=== PATIENT | female | born 1985 | race Two or more races ===

== ENCOUNTER 2021-11-09 10:25 | Inpatient (IN) | payer MEDICAID ==
[~2021-11-09] VITALS: Ht 157.5 cm; Wt 88.7 kg
[~2021-11-09 10:25] MED LIST: IBUP200C14
[2021-11-09 11:19] LABS: Basophils # (auto) 0.1 10 ^3/uL (0-0.2); Basophils % (auto) 1.1 % (0.0-2.0); Eosinophils # (auto) 0.1 10 ^3/uL (0-0.8); Eosinophils % (auto) 0.7 % (0.0-7.0); Hematocrit 39.4 % (36.0-46.0); Hemoglobin 12.9 g/dL (12.2-16.2); Lymphocytes # (auto) 2.3 10 ^3/uL (0.4-5.4); Mean Corpuscular Hemoglobin 25.7 pg (28.0-32.0); Mean Corpuscular Hgb Conc. 32.7 g/dL (32.0-36.0); Mean Corpuscular Volume 78.6 fL (80.0-100.0); Monocytes # (auto) 0.8 10 ^3/uL (0-1.3); Monocytes % (auto) 6.9 % (0.0-12.0); Neutrophils # (auto) 8.7 10 ^3/uL (1.6-8.6); Neutrophils % (auto) 72.3 % (37.0-80.0); Red Blood Cells 5.01 10^6/uL (4.0-5.20); Red Cell Distribution Width 15.7 % (11.8-14.3)
[2021-11-09 12:00] LABS: Albumin 3.6 g/dL (3.4-5.0); Potassium 3.3 mmol/L (3.5-5.1)
[2021-11-09 12:04] LABS: BUN/Creatinine Ratio 17.5; Total Protein 8.2 g/dL (6.4-8.2)
[2021-11-09 14:29] LABS: Urine Bacteria MANY /hpf (None Seen); Urine Blood TRACE /uL (Negative); Urine Mucus FEW (None Seen); Urine Specific Gravity 1.024 (1.001-1.035); Urine WBC 185 /hpf (0 - 5)
[2021-11-09] MEDS ORDERED: ONDANSETRON HCL 4 MG/2 ML VIAL IV PRN (15:30)
[2021-11-09] MEDS ORDERED: cefTRIAXone 1GM/50ML D5W 50 ML IV ONE (15:30)
[2021-11-09] MEDS ORDERED: MORPHINE SULFATE INJECTION 2 MG/ML SYRG IV PRN (15:30)
[2021-11-09] MEDS: SODIUM CHLORIDE 0.9% 1,000 ML IV SCH (15:30)
[2021-11-09] MEDS ORDERED: SODIUM CHLORIDE 0.9% 1,000 ML IV ONE (15:45)
[2021-11-09 19:50] VITALS: BP 119/74
[2021-11-09 20:00] VITALS: BP 125/66
[2021-11-09 20:18] LABS: INR 1.07 (0.9-1.15)
[2021-11-09 22:39] VITALS: BP 119/74
[2021-11-09 22:46] VITALS: BP 119/74
[2021-11-09] MEDS: metroNIDAZOLE 500MG/100ML 100 ML IV SCH (22:49)
[2021-11-10] MEDS ORDERED: ESCI10TA PO (00:49)
[2021-11-10] MEDS: SODIUM CHLORIDE 0.9% 1,000 ML IV SCH (02:14)
[2021-11-10 05:00] VITALS: BP 101/68
[2021-11-10] MEDS: metroNIDAZOLE 500MG/100ML 100 ML IV SCH ×3 (05:26→21:54)
[2021-11-10 08:00] VITALS: BP 119/70
[2021-11-10] MEDS: PANTOPRAZOLE 40 MG/10 ML VIAL INJ IV SCH (08:02)
[2021-11-10] MEDS: MORPHINE SULFATE 4 MG/ML SYR/VIAL IV PRN (08:02)
[2021-11-10 08:37] VITALS: BP 119/70
[2021-11-10] MEDS ORDERED: ENOXAPARIN SOD 40 MG/0.4 ML SYRINGE SC SCH (10:00)
[2021-11-10] MEDS: levoFLOXacin 500MG 100 ML IV SCH (10:32)
[2021-11-10 12:37] VITALS: BP 109/67
[2021-11-10] MEDS ORDERED: BUPIVACAINE 0.25% INJ 50ML VIAL ONE (13:23)
[2021-11-10] MEDS ORDERED: LIDOCAINE 1% HCL (LOCAL ANESTH.) INJ 20ML MDV ONE (13:23)
[2021-11-10] MEDS ORDERED: FAMOTIDINE (10MG/ML) 2ML VL IV ONE (13:50)
[2021-11-10] MEDS ORDERED: HYDROmorphone HCL 2 MG/ML VL ONE (13:51)
[2021-11-10] MEDS ORDERED: MIDAZOLAM HCL 2MG/2ML 2ml VIAL (1mg/ml) ONE (13:51)
[2021-11-10] MEDS ORDERED: GLYCOPYRROLATE 0.2 MG/ML 1ML VIAL ONE (13:51)
[2021-11-10] MEDS ORDERED: ONDANSETRON HCL 4 MG/2 ML VIAL ONE (13:51)
[2021-11-10] MEDS ORDERED: fentaNYL CITRATE 100 MCG/2 ML VL ONE ×2 (13:51→14:14)
[2021-11-10] MEDS ORDERED: DexAMETHasone SOD PHOS 10MG/1ML VIAL INJ ONE (13:51)
[2021-11-10] MEDS ORDERED: LIDOCAINE 2% (LOCAL ANESTH.) PF 5ml SDV ONE (13:51)
[2021-11-10] MEDS ORDERED: KETOROLAC TROMETH 30 MG/ML 1ML VIAL ONE (13:51)
[2021-11-10] MEDS ORDERED: PROPOFOL 10 MG/ML 20 ML IV ONE (13:51)
[2021-11-10] MEDS ORDERED: ROCURONIUM 10MG/ML 10ML VIAL IV ONE (13:51)
[2021-11-10] MEDS ORDERED: metroNIDAZOLE 500MG/100ML 100 ML IV ONE (14:15)
[2021-11-10] MEDS ORDERED: SUGAMMADEX 200mg/2ml Vial (100MG/ML) IV ONE (15:01)
[2021-11-10] MEDS ORDERED: ALBUTEROL SULF 2.5 MG/0.5ML(0.5%) NEB SOLN NEB ONE (15:45)
[2021-11-10] MEDS ORDERED: IPRATROPIUM BROM 0.5 MG/2.5ML INH SOL NEB ONE (15:45)
[2021-11-10] MEDS ORDERED: ONDANSETRON HCL 4 MG/2 ML VIAL IV PRN (16:15)
[2021-11-10 17:36] VITALS: BP 129/81
[2021-11-10 21:59] VITALS: BP 104/68
[2021-11-11 04:38] VITALS: BP_SYST 111; BP_SYST 113; BP_DIAS 66; BP_DIAS 72
[2021-11-11] MEDS: metroNIDAZOLE 500MG/100ML 100 ML IV SCH ×2 (05:32→13:45)
[2021-11-11] MEDS: MORPHINE SULFATE 4 MG/ML SYR/VIAL IV PRN ×2 (05:38→14:01)
[2021-11-11] MEDS: SODIUM CHLORIDE 0.9% 1,000 ML IV SCH (07:30)
[2021-11-11 08:00] VITALS: BP 117/63
[2021-11-11 09:00] VITALS: BP 117/63
[2021-11-11] MEDS: levoFLOXacin 500MG 100 ML IV SCH (09:30)
[2021-11-11] MEDS: PANTOPRAZOLE 40 MG/10 ML VIAL INJ IV SCH (09:31)
[2021-11-11 10:29] LABS: Basophils # (auto) 0 10 ^3/uL (0-0.2); Eosinophils # (auto) 0 10 ^3/uL (0-0.8); Monocytes # (auto) 0.7 10 ^3/uL (0-1.3); Monocytes % (auto) 4.2 % (0.0-12.0)
[2021-11-11 10:30] LABS: Basophils % (auto) 0.2 % (0.0-2.0); Hematocrit 29.7 % (36.0-46.0); Hemoglobin 9.7 g/dL (12.2-16.2); Lymphocytes % (auto) 6.4 % (10.0-50.0); Mean Corpuscular Hemoglobin 25.9 pg (28.0-32.0); Mean Corpuscular Hgb Conc. 32.8 g/dL (32.0-36.0); Mean Corpuscular Volume 78.9 fL (80.0-100.0); Neutrophils % (auto) 89.2 % (37.0-80.0); Nucleated Red Blood Cells % 0.2 %; Red Blood Cells 3.76 10^6/uL (4.0-5.20); Red Cell Distribution Width 15.1 % (11.8-14.3); White Blood Cell 15.7 10^3/uL (4.4-10.8)
[2021-11-11 11:11] LABS: Calcium 8.2 mg/dL (8.5-10.1)
[2021-11-11 11:12] LABS: BUN/Creatinine Ratio 14.7
[2021-11-11 13:00] VITALS: BP 115/56
[2021-11-11 17:00] VITALS: BP 109/71
[2021-11-11] MEDS ORDERED: DOCU-94 PO (19:16)
[2021-11-11] MEDS ORDERED: AMOX-277 PO (19:16)
[2021-11-11] MEDS ORDERED: HYDR-4902 PO (19:16)
[2021-11-11 20:41] VITALS: BP 109/71
== END 2021-11-11 21:40 | disposition home or self-care (01) | DRG 263 ==
LOC: ER 10:25 → OVERFLOW 15:30 → TELE 18:09 → CENTRAL 18:47
PROVIDERS: ADMIT Internal Medicine; ATTEND Internal Medicine
PROC: 0FT44ZZ Resection of Gallbladder, Percutaneous Endoscopic Approach (ICD-10-PCS; principal; 2021-11-10 13:55)
DX: K81.2 Acute cholecystitis with chronic cholecystitis (principal); E66.9 Obesity, unspecified; N39.0 Urinary tract infection, site not specified; Z20.822 Contact with and (suspected) exposure to COVID-19; F32.9 Major depressive disorder, single episode, unspecified; F41.9 Anxiety disorder, unspecified; K81.1 Chronic cholecystitis; Z68.35 Body mass index [BMI] 35.0-35.9, adult; Z98.51 Tubal ligation status
CPT/HCPCS: 36415; 71045; 74176; 76705; 80048; 80053; 81001; 83690; 84702; 85025; 85610; 86850; 86900; 86901; 96365; C9113; G0378; J0696; J1100; J1885; J1956; J2001; J2250; J2405; J2704; J3490

== ENCOUNTER → 2024-01-04 | Emergency (ER) | payer MEDICAID ==
[~2024-01-04] MED LIST changes: +AMOX875T4 PO; +DOCU-94 PO; +ESCI10TA PO; +HYDR-4902 PO; -IBUP200C14
== END | disposition left against medical advice (07) ==
LOC: ER 15:22
DX: M54.9 Dorsalgia, unspecified (principal); Z53.21 Procedure and treatment not carried out due to patient leaving prior to being seen by health care provider

== ENCOUNTER → 2025-01-05 | Outpatient (CLI) | payer BC ==
[2025-01-05 07:37] LABS: Alanine Aminotransferase 19 U/L (7-40); Albumin 4.5 g/dL (3.2-4.8); Alkaline Phosphatase 108 U/L (46-116); Anion Gap 9 (5-15); Aspartate Aminotransferase 23 U/L (13-40); Blood Urea Nitrogen 12 mg/dL (9-23); Calcium 9.6 mg/dL (8.7-10.4); Carbon Dioxide 30 mmol/L (20-31); Chloride 101 mmol/L (98-107); Glucose 105 mg/dL (74-106); HDL Cholesterol 41 mg/dL (40-59); Sodium 140 mmol/L (136-145); Total Protein 7.7 g/dL (5.7-8.2)
[2025-01-05 07:38] LABS: Bilirubin, Total 0.6 mg/dL (0.2-1.0)
[2025-01-05 07:40] LABS: Cholesterol 205 mg/dL (< 200); LDL Cholesterol 151 mg/dL (< 100); Potassium 3.2 mmol/L (3.5-5.1); Triglycerides 174 mg/dL (< 150)
[2025-01-05 08:16] LABS: Basophils # (auto) 0 10 ^3/uL (0-0.2); Basophils % (auto) 0.4 % (0.0-2.0); Eosinophils # (auto) 0.1 10 ^3/uL (0-0.8); Eosinophils % (auto) 1.3 % (0.0-7.0); Hematocrit 39.6 % (36.0-46.0); Hemoglobin 13.1 g/dL (12.2-16.2); Lymphocytes # (auto) 2.2 10 ^3/uL (0.4-5.4); Lymphocytes % (auto) 34.3 % (10.0-50.0); Mean Corpuscular Hemoglobin 25.4 pg (28.0-32.0); Mean Corpuscular Volume 76.9 fL (80.0-100.0); Monocytes # (auto) 0.4 10 ^3/uL (0-1.3); Monocytes % (auto) 6.6 % (0.0-12.0); Neutrophils # (auto) 3.7 10 ^3/uL (1.6-8.6); Neutrophils % (auto) 57.4 % (37.0-80.0); Nucleated Red Blood Cells % 0.2 %; Platelet Count (auto) 366 10^3/uL (140-450); Red Blood Cells 5.15 10^6/uL (4.0-5.20); White Blood Cell 6.5 10^3/uL (4.4-10.8)
== END | disposition home or self-care (01) ==
LOC: LAB 06:43
PROVIDERS: ATTEND Nurse Practitioner Family
DX: I10 Essential (primary) hypertension (principal); E66.9 Obesity, unspecified; Z00.01 Encounter for general adult medical examination with abnormal findings
CPT/HCPCS: 36415; 80053; 80061; 82306; 84443; 85025

== ENCOUNTER 2025-05-11 17:40 | Inpatient (IN) | payer BC, MEDICAID ==
[~2025-05-11] VITALS: Ht 157.5 cm; Wt 89.1 kg
--- NOTE | 2025-05-11 18:13 | ED.PDOC ---
General HPI Comments 39y F who presents to the ED for chief complaint of flank pain. Pt states she has been having L sided flank pain for the past 2 weeks. Pt states the pain is constant, non-radiating, sharp in nature pain, 10/10, with no noted exacerbating or relieving factors. Pt has associated nausea but denies any other symptoms. Pt states she did have fever this AM and states she took tylenol and the fever was alleviated. Pt otherwise denies history of kidney stones but has history of kidney infections. Pt otherwise denies any other symptoms at this time. Chief Complaint: Flank Pain Time Seen by MD: 18:10 Reviewed notes: Medications, Allergies Allergies: Coded Allergies: NO KNOWN ALLERGIES (Unverified , 04/17/10) Home Meds Active Scripts Docusate Sodium (Colace) 100 Mg Cap, 100 MG PO BID, #28 CAP.EC Prov:KATIE TANG MD 11/11/21 Hydrocodone-Acetaminophen (Hydrocodone Bitartrate/AC 5-325 mg) 1 Tab Tab, 1 TAB PO Q6HPRN PRN, #20 TAB Prov:KATIE TANG MD 11/11/21 Amoxicillin & Pot Clavulanate (Amoxicillin/Potassium Cla) 875 Mg Tab, 1 TAB PO BID, #14 TAB Prov:KATIE TANG MD 11/11/21 Reported Medications Escitalopram Oxalate (Lexapro) 10 Mg Tab, 1 TAB PO DAILY, #90 TAB 3 Refills 11/10/21 Information Source: Patient Mode of Arrival: Ambulatory Brought in by: self Severity: Moderate Timing: Weeks Duration: Since onset Prehospital treatment: Pain Meds Onset: Spontaneous Symptoms: None History of: None Location: (L)Flank Modifying factors: None associated signs and symptoms: Nausea Past Medical History PAST MEDICAL HISTORY: Anxiety Surgical History: Cholecystectomy, , Tubal Ligation LOKIE ENGINEER History: Denies all LOKIE ENGINEER Hx Family History Family History: Family hx of DM, Family hx of Cancer, Family hx of heart stefani Social History Smoker: Non-Smoker Alcohol: Denies ETOH Use Drugs: Denies Drug Use Lives In: Home Constitutional: denies: chills, diaphoresis, fatigue, fever, malaise, sweats, weakness, others EENTM: denies: blurred vision, double vision, ear bleeding, ear discharge, ear drainage, ear pain, ear ringing, eye pain, eye redness, hearing loss, mouth pain, mouth swelling, nasal discharge, nose bleeding, nose congestion, nose pain, photophobia, tearing, throat pain, throat swelling, voice changes, others Respiratory: denies: cough, hemoptysis, orthopnea, SOB at rest, shortness of breath, SOB with excertion, stridor, wheezing, others Cardiovascular: denies: chest pain, dizzy spells, diaphoresis, Dyspnea on exertion, edema, irregular heart beat, left arm pain, lightheadedness, palpit ations, PND, syncope, others Gastrointestinal: reports: nausea; denies: abdomen distended, abdominal pain, blood streaked bowels, constipated, diarrhea, dysphagia, difficulty swallowing, hematemesis, melena, poor appetite, poor fluid intake, rectal bleeding, rectal pain, vomiting, others Genitourinary: reports: flank pain; denies: abnormal vagina bleeding, burning, dyspareunia, dysuria, frequency, hematuria, incontinence, pain, , vagina discharge, urgency, others Neurological: denies: dizziness, fainting, headache, left sided numbness, left sided weakness, numbness, paresthesia, pre-existing deficit, right sided numbness, right sided weakness, seizure, speech problems, tingling, tremors, weakness, others Musculoskeletal: denies: back pain, gout, joint pain, joint swelling, muscle pain, muscle stiffness, neck pain, others Integumetry: denies: bruises, change in color, change in hair/nails, dryness, laceration, lesions, lumps, rash, wounds, others Allergic/Immunocompromised: denies: Difficulty Healing, Frequent Infections, Hives, Itching, others Hematologic/Lymphatic: denies: anemia, blood clots, easy bleeding, easy bruising, swollen glands, others Endocrine: denies: excessive hunger, excessive sweating, excessive thirst, excessive urination, flushing, intolerance to cold, intolerance to heat, unexplained weight gain, unexplained weight loss, others Psychiatric: denies: anxiety, bipolar disorder, depression, hopeless, panic disorder, schizophrenia, sleepless, suicidal, others All Other Systems: Reviewed and Negative Physical Exam General Appearance: Moderate Distress HEENT: Normal ENT Inspection, Pharynx Normal, TMs Normal Neck: Full Range of Motion, Non-Tender, Normal, Normal Inspection Respiratory: Chest Non-Tender, Lungs Clear, No Accessory Muscle Use, No Respiratory Distress, Normal Breath Sounds Cardiovascular: No Edema, No JVD, No Murmur, No Gallop, Normal Peripheral Pulses, Regular Rate/Rhythm Breast Exam: Deferred Gastrointestinal: No Organomegaly, Non Tender, No Pulsatile Mass, Normal Bowel Sounds, Soft Genitalia: Deferred Pelvic: Deferred Rectal: Deferred Extremities: No calf tenderness, Normal capillary refill, Normal inspection, Normal range of motion, Non-tender, No pedal edema Musculoskeletal : Location: Left Extremity Location: Back Apperance: Normal, Tenderness: Moderate Neurologic: Alert, medical practice manager II-XII nml as Tested, No Motor Deficits, Normal Affect, Normal Mood, No Sensory Deficits Cerebellar Function: Normal Reflexes: Normal Skin: Dry, Normal Color, Warm Lymphatic: No Adenopathy Was a procedure done? Was a procedure done?: No Differential Diagnosis Kidney stone (Female): Cholelithiasis, Musculoskeletal pain, Pyelonephritis, Strain, Urinary obstruction, Urolithiasis X-Ray, Labs, Meds, VS Vital Signs Date Time Temp Pulse Resp B/P (MAP) Pulse Ox O2 Delivery O2 Flow Rate FiO2 05/11/25 17:42 99.0 105 16 157/97 96 99.0 Lab Test 05/11/25 18:24 05/11/25 18:10 Range/Units White Blood Count 11.4 H 4.4-10.8 10^3/uL Red Blood Count 4.80 4.0-5.20 10^6/uL Hemoglobin 11.8 L 12.2-16.2 g/dL Hematocrit 35.7 L 36.0-46.0 % Mean Corpuscular Volume 74.3 L 80.0-100.0 fL Mean Corpuscular Hemoglobin 24.5 L 28.0-32.0 pg Mean Corpuscular Hemoglobin Concent 33.0 32.0-36.0 g/dL Red Cell Distribution Width 16.8 H 11.8-14.3 % Platelet Count 344 140-450 10^3/uL Mean Platelet Volume 7.8 6.9-10.8 fL Neutrophils (%) (Auto) 90.3 H 37.0-80.0 % Lymphocytes (%) (Auto) 6.5 L 10.0-50.0 % Monocytes (%) (Auto) 2.7 0.0-12.0 % Eosinophils (%) (Auto) 0.3 0.0-7.0 % Basophils (%) (Auto) 0.2 0.0-2.0 % Neutrophils # (Auto) 10.3 H 1.6-8.6 10 ^3/uL Lymphocytes # (Auto) 0.7 0.4-5.4 10 ^3/uL Monocytes # (Auto) 0.3 0-1.3 10 ^3/uL Eosinophils # (Auto) 0 0-0.8 10 ^3/uL Basophils # (Auto) 0 0-0.2 10 ^3/uL Nucleated Red Blood Cells 0.0 % Sodium Level 139 136-145 mmol/L Potassium Level 3.3 L 3.5-5.1 mmol/L Chloride Level 105 98-107 mmol/L Carbon Dioxide Level 25 20-31 mmol/L Anion Gap 9 5-15 Blood Urea Nitrogen 11 9-23 mg/dL Creatinine 1.43 H 0.550-1.02 mg/dL Glomerular Filtration Rate Calc 48 >90 mL/min BUN/Creatinine Ratio 7.7 L 10.0-20.0 Serum Glucose 112 H 74-106 mg/dL Calcium Level 8.8 8.7-10.4 mg/dL Urine Color Colorless Yellow Urine Clarity Turbid H Clear Urine pH 6.5 5.0-9.0 Urine Specific [place] 1.015 1.001-1.035 Urine Protein Negative Negative Urine Ketones Negative Negative Urine Blood Trace H Negative /uL Urine Nitrite Negative Negative Urine Bilirubin Negative Negative Urine Urobilinogen Normal Negative mg/dL Urine Leukocyte Esterase 3+ Negative /uL Urine RBC 6 0 - 4 /hpf Urine Microscopic WBC 64 H 0-5 /HPF Urine Squamous Epithelial Cells Mod <5 /hpf Urine Bacteria Few H None Seen /hpf Urine Glucose Normal Normal mg/dL Current Medications Medications (Trade) Dose Ordered Sig/Gregg Route Start Time Stop Time Status Last Admin Sodium Chloride 1,000 ml @ 1,000 mls/hr Q1H ONCE IVB 05/11/25 18:15 05/11/25 19:14 DC 05/11/25 18:59 Ketorolac Tromethamine (Toradol Injection) 30 mg ONCE ONCE IV 05/11/25 18:15 05/11/25 18:16 DC 05/11/25 18:59 PROCEDURE(s): ABPL - CT AB PEL WO CON-NO ORAL OR IV IMPRESSION: 1. Punctate calculus nonobstructing lower pole right kidney 2. 5 mm calculus on the left at the ureteropelvic junction with mild left hydronephrosis 3. There is a 5-6 mm calculus within the bladder on the left is consistent with a recently passed left ureteral calculus. 4. There are 2 additional calculi at the left ureteral vesicle junction 1 measures 3-4 mm 2nd measures 4 mm. IV Hep-Lock was established The patient was given a 1 L bolus of normal saline The patient was given ketorolac 30 mg IV push The patient's urine test is positive for UTI as well as for blood The patient is being given Rocephin 1 g IV piggyback The CBC shows an elevated white blood cell count of 11.4 The patient will be admitted A urology consult will be obtained Images Reviewed?: Images reviewed and evaluated by me Time of 1ST Reevaluation: 18:40 Reevaluation 1ST: Unchanged Patient Education/Counseling: Diagnosis, Treatment, Prognosis Family Education/Counseling: No Family Present SEPSIS Sepsis Screen Date sepsis recognized/suspect: May 11, 2025 Time Sepsis recognized/suspect: 1743 Recent Procedure: No On Antibiotic Therapy: No Respiratory Rate >20: No Heart Rate >90: Yes Temp<36 C (96.8 F) or >38.3 C: No SBP <90 or MAP <65 mmHG: No New Acute Mental Status Change: No Is the patient on CPAP, BIPAP,: No Physician Orders Ct Ab Pel Wo Con-No Oral Or Iv (05/11/25 18:06) Heplock Iv (05/11/25 18:06) Vital Signs Date Time Temp Pulse Resp B/P (MAP) Pulse Ox O2 Delivery O2 Flow Rate FiO2 05/11/25 17:42 99.0 105 16 157/97 96 99.0 Laboratory Tests Test 05/11/25 18:24 White Blood Count 11.4 10^3/uL (4.4-10.8) H Medications Medications Dose Ordered Sig/Gregg Route Start Time Stop Time Status Last Admin Dose Admin Ketorolac Tromethamine 30 mg ONCE ONCE IV 05/11/25 18:15 05/11/25 18:16 DC 05/11/25 18:59 Sodium Chloride 1,000 ml @ 1,000 mls/hr Q1H ONCE IVB 05/11/25 18:15 05/11/25 19:14 DC 05/11/25 18:59 Departure 1 Departure Time of Disposition: 20:29 Impression: Primary Impression: Ureterolithiasis Additional Impression: Flank pain Disposition: 09 ADMITTED INPATIENT Admit to: Med Surg Condition: Fair Critical Care Note Critical Care Time?: No Stability Stability form required: Yes Unstable for transfer: ED Physician Assesment (Clinical assesment) Heart Score Heart Score: Heart Score Response (Comments) Value History N/A 0 EKG N/A 0 Age N/A 0 Risk Factors N/A 0 Troponin N/A 0 Total 0 I personally scribed for CINDY GORE MD ([email or web address]) on 05/11/25 at 18:13. Electronically submitted by Anne Blum ([email or web address]). I personally scribed for CINDY GORE MD ([email or web address]) on 05/11/25 at 19:27. Electronically submitted by Anne Blum ([email or web address]). CINDY GORE MD May 11, 2025 18:13
[2025-05-11 18:30] LABS: Urine Protein, UAD Negative (Negative)
[2025-05-11 18:46] LABS: Hematocrit 35.7 % (36.0-46.0); Hemoglobin 11.8 g/dL (12.2-16.2); Mean Corpuscular Hemoglobin 24.5 pg (28.0-32.0); Mean Corpuscular Volume 74.3 fL (80.0-100.0); Nucleated Red Blood Cells % 0.0 %
[2025-05-11 18:57] LABS: Chloride 105 mmol/L (98-107); Sodium 139 mmol/L (136-145)
[2025-05-11 18:58] LABS: Anion Gap 9 (5-15); Calcium 8.8 mg/dL (8.7-10.4); Carbon Dioxide 25 mmol/L (20-31)
[2025-05-11] MEDS: SODIUM CHLORIDE 0.9% 1,000 ML IVB ONE (18:59)
[2025-05-11] MEDS: KETOROLAC TROMETH 30 MG/ML 1ML VIAL IV ONE (18:59)
[2025-05-11 19:03] LABS: BUN/Creatinine Ratio 7.7 (10.0-20.0); Blood Urea Nitrogen 11 mg/dL (9-23)
[2025-05-11 19:24] LABS: Glucose 112 mg/dL (74-106); Potassium 3.3 mmol/L (3.5-5.1)
--- NOTE | 2025-05-11 19:25 | DVH ---
Exam: CT CT AB PEL WO CON-NO ORAL OR IV History: left flank pain Comparison Study: CT CT AB PEL WO CON-NO ORAL OR IV on DOS: 01/04/24, ABDOMEN LIMITED on DOS: 11/10/21, CT ABD PELVIS WO CONTRAST on DOS: 11/09/21 TECHNIQUE: Multidetector CT of the abdomen was performed from lung bases to pubic symphysis. Imaging was performed without IV contrast. Axial, coronal and sagittal multiplanar reformats were obtained fr om the axial data set by the technologist. Radiation Dose Information: CT Dose: CTDI volume is 24.61 mGy. Dose-length product is 1326.01 mGy*cm FINDINGS: Evaluation of solid organs is limited due to lack of intravenous contrast use. Findings: Lung Bases: No acute or significant lung base finding. Normal heart size. No pleural or pericardial effusion. Liver: The liver is normal in size. No focal lesions. Gallbladder and Biliary Tree: Gallbladder surgically removed. Spleen: Unremarkable Pancreas: The pancreas is grossly normal in appearance. Adrenal Glands: Unremarkable Kidneys: Punctate calculus lower pole right kidney nonobstructing 5 mm calculus of the left ureterope lvic junction. Mild left hydronephrosis. Multiple punctate calculi lower pole left kidney. Bladder: There is calculus within the bladder on the left consistent with a recently passed ureteral calculus measuring 5-6 mm. Additionally there are 2 calculi at the left ureterovesical junction 1 me asures 3-4 mm the 2nd measures 4 mm. Bowel: The stomach is grossly normal in appearance. Small bowel and colon are normal in caliber and d istribution. The appendix is not visualized; however, no secondary findings of acute appendicitis id entified. Ascites: Absent Lymphadenopathy: No mesenteric, retroperitoneal or periportal lymphadenopathy. Abdominal Wall and Mesentery: Unremarkable. Vasculature: The visualized abdominal aorta is normal in size and caliber. Evaluation of abdominal a nd pelvic vessels is limited due to lack of intravenous contrast. Pelvic Organs: Unremarkable Musculoskeletal: No aggressive focal bony lesions, acute fractures or dislocation. Soft tissues: Unremarkable IMPRESSION: 1. Punctate calculus nonobstructing lower pole right kidney 2. 5 mm calculus on the left at the ureteropelvic junction with mild left hydronephrosis 3. There is a 5-6 mm calculus within the bladder on the left is consistent with a recently passed lef t ureteral calculus. 4. There are 2 additional calculi at the left ureteral vesicle junction 1 measures 3-4 mm 2nd measure s 4 mm. Radiation optimization: All CT scans at this facility use at least one of these dose optimization te chniques: automated exposure control mA and/or kV adjustment per patient size (includes targeted exa ms where dose is matched to clinical indication) or iterative reconstruction.
[2025-05-11] MEDS ORDERED: MORPHINE SULFATE INJ 2 MG/ml SYRG IV PRN (20:45)
[2025-05-11] MEDS ORDERED: TEMAZEPAM 15 MG CAP PO PRN (22:00)
[2025-05-11] MEDS: SODIUM CHLORIDE 0.9% 500 ML IV ONE (22:52)
[2025-05-11] MEDS: TAMSULOSIN HYDROCHLORIDE 0.4 MG CAP PO ONE (22:52)
[2025-05-11 23:01] VITALS: PULSE 118; RESP 16; O2SAT 95
[2025-05-11] MEDS: ONDANSETRON HCL 4 MG/2 ML VIAL IV PRN (23:04)
[2025-05-12] VITALS (9 sets, daily range): BP systolic 97–109; BP diastolic 61–74; PULSE 74–130; RESP 16–18; TEMP 97.7–101.2; O2SAT 94–98
--- NOTE | 2025-05-12 02:21 | DVHHP2 ---
History of Present Illness Reason for Visit: Flank pain History of Present Illness 39-year-old female presents for evaluation of flank pain. Patient endorses a 10 day history of left-sided flank pain with associated nausea and she also started developing fever over the past couple of days. No dysuria or hematuria. No other acute complaints. Past Medical History Hypertension Past Surgical History , tubal ligation, cholecystectomy Family History Diabetes mellitus, heart disease Smoke: No ALCOHOL: none Drugs: None Lives: with Family Review of Systems Review of Systems Review of systems are currently negative otherwise addressed in HPI. Allergies: Coded Allergies: NO KNOWN ALLERGIES (Unverified , 04/17/10) Medications Current Medications Medications Dose Ordered Sig/Gregg Route Start Time Stop Time Status Last Admin Dose Admin Amlodipine Besylate 10 mg DAILY PO 05/12/25 10:00 Ceftriaxone Sodium 50 ml @ 100 mls/hr DAILY@09 IV 05/12/25 09:00 Amlodipine Besylate 10 mg DAILY PO 05/12/25 10:00 UNV Acetaminophen/ Hydrocodone Bitart 1 tab Q4HP PRN PO 05/11/25 20:45 Temazepam 15 mg QHSP PRN PO 05/11/25 22:00 Ondansetron HCl 4 mg Q4HP PRN IV 05/11/25 20:45 05/11/25 23:04 4 MG Acetaminophen 650 mg Q6HP PRN PO 05/11/25 20:45 Morphine Sulfate 2 mg Q6HPRN PRN IV 05/11/25 20:45 Exam Vital Signs Vital Signs Date Time Temp Pulse Resp B/P (MAP) Pulse Ox O2 Delivery O2 Flow Rate FiO2 05/11/25 23:01 118 16 95 Room Air* 0 21 05/11/25 23:00 99.4 132/82 (99) 99.4 Exam Gen: 39-year-old female in mild distress Skin: Warm, dry, normal color and texture, no rash. HEENT: Normocephalic atraumatic, mucous membranes moist and pink. Neck: Cervical and supraclavicular nodes normal without enlargement, trachea is midline, thyroid gland is normal without masses. Pulmonary: Clear to auscultation and percussion bilaterally. Cardiac: Regular rate and rhythm. No murmur Abdomen: Soft, left CVA tenderness, nondistended, bowel sounds present all 4 quadrants, no guarding, no rigidity, no organomegaly. Extremities: No cyanosis, clubbing, no edema Neuro: Cranial nerves II through XII grossly intact, normal affect and speech, no focal motor deficits. Labs/Xrays ORDERING PHYSICIAN: CINDY GORE MD PROCEDURE(s): ABPL - CT AB PEL WO CON-NO ORAL OR IV REASON: left flank pain ORDER NUMBER(s): [id number], ACCESSION NUMBER(s): [id number] Exam: CT CT AB PEL WO CON-NO ORAL OR IV History: left flank pain Comparison Study: CT CT AB PEL WO CON-NO ORAL OR IV on DOS: 01/04/24, ABDOMEN LIMITED on DOS: 11/10/21, CT ABD PELVIS WO CONTRAST on DOS: 11/09/21 TECHNIQUE: Multidetector CT of the abdomen was performed from lung bases to pubic symphysis. Imaging was performed without IV contrast. Axial, coronal and sagittal multiplanar reformats were obtained from the axial data set by the technologist. Radiation Dose Information: CT Dose: CTDI volume is 24.61 mGy. Dose-length product is 1326.01 mGy*cm FINDINGS: Evaluation of solid organs is limited due to lack of intravenous contrast use. Findings: Lung Bases: No acute or significant lung base finding. Normal heart size. No pleural or pericardial effusion. Liver: The liver is normal in size. No focal lesions. Gallbladder and Biliary Tree: Gallbladder surgically removed. Spleen: Unremarkable Pancreas: The pancreas is grossly normal in appearance. Adrenal Glands: Unremarkable Kidneys: Punctate calculus lower pole right kidney nonobstructing 5 mm calculus of the left ureteropelvic junction. Mild left hydronephrosis. Multiple punctate calculi lower pole left kidney. Bladder: There is calculus within the bladder on the left consistent with a recently passed ureteral calculus measuring 5-6 mm. Additionally there are 2 calculi at the left ureterovesical junction 1 measures 3-4 mm the 2nd measures 4 mm. Bowel: The stomach is grossly normal in appearance. Small bowel and colon are normal in caliber and distribution. The appendix is not visualized; however, no secondary findings of acute appendicitis identified. Ascites: Absent Lymphadenopathy: No mesenteric, retroperitoneal or periportal lymphadenopathy. Abdominal Wall and Mesentery: Unremarkable. Vasculature: The visualized abdominal aorta is normal in size and caliber. Evaluation of abdominal and pelvic vessels is limited due to lack of intravenous contrast. Pelvic Organs: Unremarkable Musculoskeletal: No aggressive focal bony lesions, acute fractures or dislocation. Soft tissues: Unremarkable IMPRESSION: 1. Punctate calculus nonobstructing lower pole right kidney 2. 5 mm calculus on the left at the ureteropelvic junction with mild left hydronephrosis 3. There is a 5-6 mm calculus within the bladder on the left is consistent with a recently passed left ureteral calculus. 4. There are 2 additional calculi at the left ureteral vesicle junction 1 measures 3-4 mm 2nd measures 4 mm. Radiation optimization: All CT scans at this facility use at least one of these dose optimization techniques: automated exposure control mA and/or kV adjustment per patient size (includes targeted exams where dose is matched to clinical indication) or iterative reconstruction. Labs Test 05/11/25 18:24 05/11/25 18:10 Range/Units White Blood Count 11.4 H 4.4-10.8 10^3/uL Red Blood Count 4.80 4.0-5.20 10^6/uL Hemoglobin 11.8 L 12.2-16.2 g/dL Hematocrit 35.7 L 36.0-46.0 % Mean Corpuscular Volume 74.3 L 80.0-100.0 fL Mean Corpuscular Hemoglobin 24.5 L 28.0-32.0 pg Mean Corpuscular Hemoglobin Concent 33.0 32.0-36.0 g/dL Red Cell Distribution Width 16.8 H 11.8-14.3 % Platelet Count 344 140-450 10^3/uL Mean Platelet Volume 7.8 6.9-10.8 fL Neutrophils (%) (Auto) 90.3 H 37.0-80.0 % Lymphocytes (%) (Auto) 6.5 L 10.0-50.0 % Monocytes (%) (Auto) 2.7 0.0-12.0 % Eosinophils (%) (Auto) 0.3 0.0-7.0 % Basophils (%) (Auto) 0.2 0.0-2.0 % Neutrophils # (Auto) 10.3 H 1.6-8.6 10 ^3/uL Lymphocytes # (Auto) 0.7 0.4-5.4 10 ^3/uL Monocytes # (Auto) 0.3 0-1.3 10 ^3/uL Eosinophils # (Auto) 0 0-0.8 10 ^3/uL Basophils # (Auto) 0 0-0.2 10 ^3/uL Nucleated Red Blood Cells 0.0 % Sodium Level 139 136-145 mmol/L Potassium Level 3.3 L 3.5-5.1 mmol/L Chloride Level 105 98-107 mmol/L Carbon Dioxide Level 25 20-31 mmol/L Anion Gap 9 5-15 Blood Urea Nitrogen 11 9-23 mg/dL Creatinine 1.43 H 0.550-1.02 mg/dL Glomerular Filtration Rate Calc 48 >90 mL/min BUN/Creatinine Ratio 7.7 L 10.0-20.0 Serum Glucose 112 H 74-106 mg/dL Calcium Level 8.8 8.7-10.4 mg/dL Urine Color Colorless Yellow Urine Clarity Turbid H Clear Urine pH 6.5 5.0-9.0 Urine Specific [place] 1.015 1.001-1.035 Urine Protein Negative Negative Urine Ketones Negative Negative Urine Blood Trace H Negative /uL Urine Nitrite Negative Negative Urine Bilirubin Negative Negative Urine Urobilinogen Normal Negative mg/dL Urine Leukocyte Esterase 3+ Negative /uL Urine RBC 6 0 - 4 /hpf Urine Microscopic WBC 64 H 0-5 /HPF Urine Squamous Epithelial Cells Mod <5 /hpf Urine Bacteria Few H None Seen /hpf Urine Glucose Normal Normal mg/dL SEPSIS Sepsis Screen Date sepsis recognized/suspect: May 11, 2025 Time Sepsis recognized/suspect: 2300 Recent Procedure: No On Antibiotic Therapy: No Respiratory Rate >20: No Heart Rate >90: Yes Temp<36 C (96.8 F) or >38.3 C: No SBP <90 or MAP <65 mmHG: No New Acute Mental Status Change: No Is the patient on CPAP, BIPAP,: No Physician Orders Admit (05/11/25 20:06) Amlodipine Tablet (Norvasc Tablet) (05/12/25 10:00) Ceftriaxone 1gm/50ml (Rocephin) (05/12/25 09:00) Urine Bacterial Culture (05/11/25 20:40) Basic Metabolic Panel (05/12/25 04:00) Hydrocodone-Acet 5/325mg Tab (Jbphh 5/32 (05/11/25 20:45) Temazepam (Restoril) (05/11/25 22:00) Ondansetron Hcl (Zofran) (05/11/25 20:45) Complete Blood Count (05/12/25 04:00) Condition: Stable (05/11/25 20:40) Acetaminophen Tablet (Tylenol Tablet) (05/11/25 20:45) Bedrest With Bathroom Privileg (05/11/25 20:40) Morphine Sulfate Injection (05/11/25 20:45) Regular Diet (05/12/25 Breakfast) Vital Signs Date Time Temp Pulse Resp B/P (MAP) Pulse Ox O2 Delivery O2 Flow Rate FiO2 05/11/25 23:01 118 16 95 Room Air* 0 21 05/11/25 23:00 99.4 110 16 132/82 (99) 95 99.4 05/11/25 20:33 119 20 128/92 (104) 97 Laboratory Tests Test 05/11/25 18:24 White Blood Count 11.4 10^3/uL (4.4-10.8) H Medications Medications Dose Ordered Sig/Gregg Route Start Time Stop Time Status Last Admin Dose Admin Ceftriaxone Sodium 50 ml @ 100 mls/hr ONCE ONCE IV 05/11/25 20:45 05/11/25 21:14 DC 05/11/25 22:52 100 MLS/HR Ketorolac Tromethamine 30 mg ONCE ONCE IV 05/11/25 18:15 05/11/25 18:16 DC 05/11/25 18:59 30 MG Ondansetron HCl 4 mg Q4HP PRN IV 05/11/25 20:45 05/11/25 23:04 4 MG Sodium Chloride 500 ml @ 500 mls/hr Q1H ONCE IV 05/11/25 20:45 05/11/25 21:44 DC 05/11/25 22:52 500 MLS/HR Sodium Chloride 1,000 ml @ 1,000 mls/hr Q1H ONCE IVB 05/11/25 18:15 05/11/25 19:14 DC 05/11/25 18:59 1,000 MLS/HR Tamsulosin HCl 0.4 mg ONCE ONCE PO 05/11/25 20:45 05/11/25 20:49 DC 05/11/25 22:52 0.4 MG Assessment/Plan Assessment/Plan Assessment Nephrolithiasis Left hydronephrosis Acute kidney injury Leukocytosis UTI Hypertension Plan Admit the patient to [facility] to the hospitalist Urology consultation Pain management Rocephin Resume home medications Continue treatment per orders. Plan discussed with: Patient My Orders Orders - KETTY HADDAD Procedure Category Date Status Time Admit ADMIT 05/11/25 Transmitted 20:06 Amlodipine Tablet PHA 05/12/25 In Process (Norvasc Tablet) 10:00 Ceftriaxone 1gm/50ml PHA 05/12/25 In Process (Rocephin) 09:00 Urine Bacterial LAURIE 05/11/25 Uncollected Culture 20:40 Basic Metabolic Panel LAB 05/12/25 Logged 04:00 Hydrocodone-Acet PHA 05/11/25 In Process 5/325mg Tab (Jbphh 20:45 Temazepam (Restoril) PHA 05/11/25 In Process 22:00 Ondansetron Hcl PHA 05/11/25 In Process (Zofran) 20:45 Complete Blood Count LAB 05/12/25 Logged 04:00 Condition: Stable AZAR 05/11/25 In Process 20:40 Acetaminophen Tablet PHA 05/11/25 In Process (Tylenol Tablet) 20:45 Bedrest With Bathroom AZAR 05/11/25 In Process Privileg 20:40 Morphine Sulfate PHA 05/11/25 In Process Injection 20:45 Regular Diet DIET 05/12/25 Transmitted Breakfast Date of Service: May 11, 2025 Billing Provider: KETTY HADDAD Common Visit Codes: [id number] INP/OBS CARE (MOD) KETTY HADDAD May 12, 2025 02:21
[2025-05-12] MEDS ORDERED: AMLO1TAB22 PO (02:46)
[2025-05-12] MEDS: ACETAMINOPHEN 325 MG TAB PO PRN (05:27)
[2025-05-12 07:07] LABS: Hematocrit 33.6 % (36.0-46.0); Hemoglobin 11.0 g/dL (12.2-16.2); Mean Corpuscular Hemoglobin 24.6 pg (28.0-32.0); Mean Corpuscular Volume 75.1 fL (80.0-100.0); Nucleated Red Blood Cells % 0.0 %
[2025-05-12 07:22] LABS: Anion Gap 13 (5-15); Carbon Dioxide 21 mmol/L (20-31); Chloride 104 mmol/L (98-107); Sodium 138 mmol/L (136-145)
[2025-05-12 07:28] LABS: BUN/Creatinine Ratio 7.4 (10.0-20.0)
[2025-05-12 07:30] LABS: Blood Urea Nitrogen 9 mg/dL (9-23); Calcium 8.3 mg/dL (8.7-10.4); Glucose 113 mg/dL (74-106); Potassium 3.1 mmol/L (3.5-5.1)
[2025-05-12] MEDS: HYDROcodone-ACET 5/325MG TAB PO PRN (10:01)
--- NOTE | 2025-05-12 14:58 | DVHPN2 ---
Reviewed: H&P Changes from previous H/P or p: No Changes General: Per HPI Objective Vitals Vital Signs Date Time Temp Pulse Resp B/P (MAP) Pulse Ox O2 Delivery O2 Flow Rate FiO2 05/12/25 12:37 98.7 112 17 97/61 (73) 96 98.7 05/12/25 08:00 Room Air* 0 21 Intake/Output Intake and Output 05/12/25 07:00 Intake Total 290 ml Output Total 1000 ml Balance -710 ml Intake Oral 290 ml Output Urine Total 1000 ml # Voids 7 Exam Gen: 39-year-old female in mild distress Skin: Warm, dry, normal color and texture, no rash. HEENT: Normocephalic atraumatic, mucous membranes moist and pink. Neck: Cervical and supraclavicular nodes normal without enlargement, trachea is midline, thyroid gland is normal without masses. Pulmonary: Clear to auscultation and percussion bilaterally. Cardiac: Regular rate and rhythm. No murmur Abdomen: Soft, left CVA tenderness, nondistended, bowel sounds present all 4 quadrants, no guarding, no rigidity, no organomegaly. Extremities: No cyanosis, clubbing, no edema Neuro: Cranial nerves II through XII grossly intact, normal affect and speech, no focal motor deficits. Medications Current Medications Medications Dose Ordered Sig/Gregg Route Start Time Stop Time Status Last Admin Dose Admin Amlodipine Besylate 10 mg DAILY PO 05/12/25 10:00 Ceftriaxone Sodium 50 ml @ 100 mls/hr DAILY@09 IV 05/12/25 09:00 05/12/25 09:37 100 MLS/HR Amlodipine Besylate 10 mg DAILY PO 05/12/25 10:00 UNV Acetaminophen/ Hydrocodone Bitart 1 tab Q4HP PRN PO 05/11/25 20:45 05/12/25 10:01 1 TAB Temazepam 15 mg QHSP PRN PO 05/11/25 22:00 Ondansetron HCl 4 mg Q4HP PRN IV 05/11/25 20:45 05/11/25 23:04 4 MG Acetaminophen 650 mg Q6HP PRN PO 05/11/25 20:45 05/12/25 05:27 650 MG Morphine Sulfate 2 mg Q6HPRN PRN IV 05/11/25 20:45 Laboratory Results Laboratory Tests 05/12/25 04:30 Chemistry Test 05/11/25 18:24 05/12/25 04:30 Calcium Level 8.8 mg/dL (8.7-10.4) 8.3 mg/dL (8.7-10.4) L Urinalysis Test 05/11/25 18:10 Urine Color Colorless (Yellow) Urine Clarity Turbid (Clear) H Urine pH 6.5 (5.0-9.0) Urine Specific [place] 1.015 (1.001-1.035) Urine Protein Negative (Negative) Urine Ketones Negative (Negative) Urine Blood Trace /uL (Negative) H Urine Nitrite Negative (Negative) Urine Bilirubin Negative (Negative) Urine Urobilinogen Normal mg/dL (Negative) Urine Leukocyte Esterase 3+ /uL (Negative) Urine RBC 6 /hpf (0 - 4) Urine Microscopic WBC 64 /HPF (0-5) H Urine Squamous Epithelial Cells Mod /hpf (<5) Urine Bacteria Few /hpf (None Seen) H Urine Glucose Normal mg/dL (Normal) Labs and/or images reviewed: Labs reviewed by me, Image(s) reviewed by me Assessment/Plan Assessment/Plan 39-year-old female presents for evaluation of flank pain. Patient endorses a 10 day history of left-sided flank pain with associated nausea and she also started developing fever over the past couple of days. No dysuria or hematuria. No other acute complaints. 05/12: Flank pain, nausea continuing febrile episodes. Continuing IV antibiotics. Reassess hydronephrosis we will ultrasound kidney. Pyelonephritis, complicated conditions below Nephrolithiasis , obstructive Left hydronephrosis febrile episodes tachycardia P.o. intolerance due to above Intractable pain due to above Intractable nausea and vomiting due to above Acute kidney injury Leukocytosis with neutrophilia Hypokalemia UTI Hypertension - amlodipine 10 Ceftriaxone 1 g daily Pain control PRN Antiemetics prn IV fluids Med surge Full code Plan discussed with: Patient Date of Service: May 12, 2025 Billing Provider: JENARO ELIZABETH MD Common Visit Codes: [id number] INP/OBS CARE(HIGH) JENARO ELIZABETH MD May 12, 2025 14:57
--- NOTE | 2025-05-12 16:12 | DVH ---
CLINICAL HISTORY: assess hydronephrosis , interval change. TECHNIQUE: Complete ultrasound exam of the kidneys and bladder was performed. COMPARISON: None FINDINGS: The right kidney has normal echogenicity and measures 11.4 cm. There is no focal parenchymal abnormal ity or evidence for stone. There is no hydronephrosis. The left kidney has normal echogenicity and measures .5 12.5 cm. There is no focal parenchymal abnor mality . The 4 mm left lower pole renal calculus. There is mild left hydronephrosis. There is A 4mm left lower pole renal calculus. There is mild left hydronephrosis. The bladder is grossly unremarkable. IMPRESSION: Mild left hydronephrosis. 4 mm nonobstructing left renal calculus.
[2025-05-12] MEDS: SODIUM CHLORIDE 0.9% 1,000 ML IV SCH (18:26)
[2025-05-13] VITALS (8 sets, daily range): BP systolic 93–140; BP diastolic 56–89; PULSE 86–125; RESP 16–20; TEMP 98.1–103.1; O2SAT 93–96
[2025-05-13 05:36] LABS: Hematocrit 30.9 % (36.0-46.0); Hemoglobin 9.9 g/dL (12.2-16.2); Mean Corpuscular Hemoglobin 24.1 pg (28.0-32.0); Mean Corpuscular Volume 75.2 fL (80.0-100.0); Nucleated Red Blood Cells % 0.1 %
[2025-05-13 05:52] LABS: Alanine Aminotransferase 11 U/L (7-40); Albumin 3.5 g/dL (3.2-4.8); Alkaline Phosphatase 105 U/L (46-116); Anion Gap 10 (5-15); BUN/Creatinine Ratio 7.1 (10.0-20.0); Bilirubin, Total 0.7 mg/dL (0.2-1.0); Blood Urea Nitrogen 10 mg/dL (9-23); Carbon Dioxide 23 mmol/L (20-31); Chloride 105 mmol/L (98-107); Glucose 100 mg/dL (74-106); Sodium 138 mmol/L (136-145); Total Protein 6.6 g/dL (5.7-8.2)
[2025-05-13 06:07] LABS: Calcium 8.0 mg/dL (8.7-10.4); Potassium 3.4 mmol/L (3.5-5.1)
--- NOTE | 2025-05-13 11:04 | DVHPN2 ---
Subjective Improvement but is very slow, seen bedside today. Reviewed: H&P Changes from previous H/P or p: No Changes General: Per HPI Objective Vitals Vital Signs Date Time Temp Pulse Resp B/P (MAP) Pulse Ox O2 Delivery O2 Flow Rate FiO2 05/13/25 10:43 101/64 05/13/25 09:00 99.0 113 18 94 99.0 05/12/25 20:00 Room Air* 0 21 Intake/Output Intake and Output 05/13/25 06:59 Intake Total 1695 ml Balance 1695 ml Intake Oral 1570 ml IV Total 125 ml # Voids 7 Exam Gen: 39-year-old female in mild distress Skin: Warm, dry, normal color and texture, no rash. HEENT: Normocephalic atraumatic, mucous membranes moist and pink. Neck: Cervical and supraclavicular nodes normal without enlargement, trachea is midline, thyroid gland is normal without masses. Pulmonary: Clear to auscultation and percussion bilaterally. Cardiac: Regular rate and rhythm. No murmur Abdomen: Soft, left CVA tenderness, nondistended, bowel sounds present all 4 quadrants, no guarding, no rigidity, no organomegaly. Extremities: No cyanosis, clubbing, no edema Neuro: Cranial nerves II through XII grossly intact, normal affect and speech, no focal motor deficits. Medications Current Medications Medications Dose Ordered Sig/Gregg Route Start Time Stop Time Status Last Admin Dose Admin Amlodipine Besylate 10 mg DAILY PO 05/12/25 10:00 05/13/25 10:43 10 MG Amlodipine Besylate 10 mg DAILY PO 05/12/25 10:00 UNV Acetaminophen/ Hydrocodone Bitart 1 tab Q4HP PRN PO 05/11/25 20:45 05/12/25 10:01 1 TAB Temazepam 15 mg QHSP PRN PO 05/11/25 22:00 Ondansetron HCl 4 mg Q4HP PRN IV 05/11/25 20:45 05/13/25 08:53 4 MG Acetaminophen 650 mg Q6HP PRN PO 05/11/25 20:45 05/13/25 08:54 650 MG Morphine Sulfate 2 mg Q6HPRN PRN IV 05/11/25 20:45 Ketorolac Tromethamine 15 mg Q6HPRN PRN IV 05/12/25 17:30 05/17/25 17:30 Sodium Chloride 1,000 ml @ 75 mls/hr [id number] IV 05/12/25 17:30 05/13/25 07:08 75 MLS/HR Piperacillin Sod/ Tazobactam Sod 100 ml @ 25 mls/hr Q6HR IV 05/13/25 12:00 UNV Laboratory Results Laboratory Tests 05/13/25 04:40 Chemistry Test 05/13/25 04:40 Albumin 3.5 g/dL (3.2-4.8) Calcium Level 8.0 mg/dL (8.7-10.4) L Total Protein 6.6 g/dL (5.7-8.2) LFT Test 05/13/25 04:40 Alanine Aminotransferase (ALT) 11 U/L (7-40) Alkaline Phosphatase 105 U/L (46-116) Aspartate Amino Transferase (AST) 16 U/L (13-40) Total Bilirubin 0.7 mg/dL (0.2-1.0) Urinalysis Test 05/11/25 18:10 Urine Color Colorless (Yellow) Urine Clarity Turbid (Clear) H Urine pH 6.5 (5.0-9.0) Urine Specific [place] 1.015 (1.001-1.035) Urine Protein Negative (Negative) Urine Ketones Negative (Negative) Urine Blood Trace /uL (Negative) H Urine Nitrite Negative (Negative) Urine Bilirubin Negative (Negative) Urine Urobilinogen Normal mg/dL (Negative) Urine Leukocyte Esterase 3+ /uL (Negative) Urine RBC 6 /hpf (0 - 4) Urine Microscopic WBC 64 /HPF (0-5) H Urine Squamous Epithelial Cells Mod /hpf (<5) Urine Bacteria Few /hpf (None Seen) H Urine Glucose Normal mg/dL (Normal) Labs and/or images reviewed: Labs reviewed by me, Image(s) reviewed by me Assessment/Plan Assessment/Plan 39-year-old female presents for evaluation of flank pain. Patient endorses a 10 day history of left-sided flank pain with associated nausea and she also started developing fever over the past couple of days. No dysuria or hematuria. No other acute complaints. 05/12: Flank pain, nausea continuing febrile episodes. Continuing IV antibiotics. Reassess hydronephrosis we will ultrasound kidney. 05/13: Still having fevers pain CVA tenderness, we will repeat ultrasound to reassess hydronephrosis, consult Urology, increase antibiotic to Zosyn. Ceftriaxone continuing IV fluids continue prn antiemetics and analgesia. We will get blood cultures today she is still having fevers. - urology recommending outpatient lithotripsy but ultrasounds showing ongoing left hydronephrosis concern for infected stone. Diagnosis Pyelonephritis, complicated conditions below Nephrolithiasis , obstructive Left hydronephrosis febrile episodes tachycardia P.o. intolerance due to above Intractable pain due to above Intractable nausea and vomiting due to above Acute kidney injury Leukocytosis with neutrophilia Hypokalemia UTI Hypertension - amlodipine 10 Ceftriaxone 1 g daily Pain control PRN Antiemetics prn IV fluids Med surge Full code Plan discussed with: Patient My Orders Orders - JENARO ELIZABETH MD Procedure Category Date Status Time Kidney US 05/12/25 Resulted 14:54 Ketorolac Injection PHA 05/12/25 In Process (Toradol Injection) 17:30 Sodium Chloride 0.9% PHA 05/12/25 In Process 17:30 Kidney US 05/13/25 Logged 10:55 Piperacillin-Tazob PHA 05/13/25 Logged 3.375gm (Zosyn 3.375g 12:00 * Urology Consult CONS 05/13/25 Verified 11:01 Date of Service: May 13, 2025 Billing Provider: JENARO ELIZABETH MD Common Visit Codes: [id number] INP/OBS CARE(HIGH) JENARO ELIZABETH MD May 13, 2025 11:04
--- NOTE | 2025-05-13 11:31 | DVH ---
US KIDNEY HISTORY: Interval update on hydronephrosis COMPARISON: US KIDNEY on DOS: 05/12/25, ABDOMEN LIMITED on DOS: 11/10/21, CT ABD PELVIS WO CONTRAST on DOS: 11/09/21 TECHNIQUE: Transverse and longitudinal grayscale and color doppler images were obtained of the kidney s and bladder. FINDINGS: Right kidney: Cortical thickness: Normal Echogenicity: Normal Stones: None Masses: None Hydronephrosis: None Ureters: Not well visualized. Other: None Left kidney: Cortical thickness: Normal Echogenicity: Normal Stones: None Masses: None Hydronephrosis: yes Ureters: Not well visualized. Other: None Bladder: Normal Other: None. IMPRESSION: Similar mild left hydronephrosis.
--- NOTE | 2025-05-13 12:03 | DVHINCON2 ---
Date of service: May 13, 2025 Referring Physician Hospitalist Reason for Consultation ureteral stone History of Present Illness History Source: Patient, RN Notes, MD Notes Exam Limitations: No limitations HPI 39-year-old female presents for evaluation of flank pain. Patient endorses a 10 day history of left-sided flank pain with associated nausea and she also started developing fever over the past couple of days. No dysuria or hematuria. No other acute complaints. Home Meds Active Scripts Docusate Sodium (Colace) 100 Mg Cap, 100 MG PO BID, #28 CAP.EC Prov:KATIE TANG MD 11/11/21 Hydrocodone-Acetaminophen (Hydrocodone Bitartrate/AC 5-325 mg) 1 Tab Tab, 1 TAB PO Q6HPRN PRN, #20 TAB Prov:KATIE TANG MD 11/11/21 Amoxicillin & Pot Clavulanate (Amoxicillin/Potassium Cla) 875 Mg Tab, 1 TAB PO BID, #14 TAB Prov:KATIE TANG MD 11/11/21 Reported Medications Amlodipine Besylate (Amlodipine Besylate) 5 Mg Tab, 5 MG PO DAILY for 30 Days, MG 05/12/25 Escitalopram Oxalate (Lexapro) 10 Mg Tab, 1 TAB PO DAILY, #90 TAB 3 Refills 11/10/21 Past Medical History Renal/: UTI Patient Family History: Cardiovascular disease G8 MOTHER G8 FATHER Diabetes mellitus G8 MOTHER G8 FATHER Review of Systems Constitutional: Fever Gastrointestinal: Nausea Genitourinary: Dysuria, Frequency, Pain H&P Exam Vital Signs Vital Signs Date Time Temp Pulse Resp B/P (MAP) Pulse Ox O2 Delivery O2 Flow Rate FiO2 05/13/25 10:43 101/64 05/13/25 09:00 99.0 113 18 94 99.0 05/13/25 07:55 Room Air* 0 21 General Appeara: Well developed, Well nourished, Normal Appearance Neuro/Mental St: Alert, Oriented Appearance: Appropriate appearance, Appropriate insight Eye contact/ Speech: Cooperative, Good eye contact, Normal speech Skin Exam: Normal inspection, Normal color, Warm/dry Labs/Xrays [address] [address] Ph: [phone] DIAGNOSTIC IMAGING Diagnostic Imaging Report : [id number] Signed PATIENT: DAVID GILBERT: [id number] UNIT: [id number] : 1985 LOC: [facility] ROOM / BED: [facility] / A AGE / SEX: 39 / F ADM STATUS: ADM IN SERVICE 1057 ORDERING PHYSICIAN: JENARO ELIZABETH MD PROCEDURE(s): KIDUS - KIDNEY REASON: Interval update on hydronephrosis ORDER NUMBER(s): [id number], ACCESSION NUMBER(s): [id number] US KIDNEY HISTORY: Interval update on hydronephrosis COMPARISON: US KIDNEY on DOS: 05/12/25, ABDOMEN LIMITED on DOS: 11/10/21, CT ABD PELVIS WO CONTRAST on DOS: 11/09/21 TECHNIQUE: Transverse and longitudinal grayscale and color doppler images were obtained of the kidneys and bladder. FINDINGS: Right kidney: Cortical thickness: Normal Echogenicity: Normal Stones: None Masses: None Hydronephrosis: None Ureters: Not well visualized. Other: None Left kidney: Cortical thickness: Normal Echogenicity: Normal Stones: None Masses: None Hydronephrosis: yes Ureters: Not well visualized. Other: None Bladder: Normal Other: None. IMPRESSION: Similar mild left hydronephrosis. ATED BY: DELL LEYVA MD DICTATED DATE/TIME: 05/13/25 112 SIGNED BY: DELL LEYVA MD SIGNED DATE/TIME: 05/13/25 112 CC: [place] [address] Ph: [phone] DIAGNOSTIC IMAGING Diagnostic Imaging Report : [id number] Signed PATIENT: APRIL ROSS ACCT: [id number] UNIT: [id number] : 1985 LOC: ER ROOM / BED: / AGE / SEX: 39 / F ADM STATUS: REG ER SERVICE [id number] ORDERING PHYSICIAN: CINDY GORE MD PROCEDURE(s): ABPL - CT AB PEL WO CON-NO ORAL OR IV REASON: left flank pain ORDER NUMBER(s): [id number], ACCESSION NUMBER(s): [id number] Exam: CT CT AB PEL WO CON-NO ORAL OR IV History: left flank pain Comparison Study: CT CT AB PEL WO CON-NO ORAL OR IV on DOS: 01/04/24, ABDOMEN LIMITED on DOS: 11/10/21, CT ABD PELVIS WO CONTRAST on DOS: 11/09/21 TECHNIQUE: Multidetector CT of the abdomen was performed from lung bases to pubic symphysis. Imaging was performed without IV contrast. Axial, coronal and sagittal multiplanar reformats were obtained from the axial data set by the technologist. Radiation Dose Information: CT Dose: CTDI volume is 24.61 mGy. Dose-length product is 1326.01 mGy*cm FINDINGS: Evaluation of solid organs is limited due to lack of intravenous contrast use. Findings: Lung Bases: No acute or significant lung base finding. Normal heart size. No pleural or pericardial effusion. Liver: The liver is normal in size. No focal lesions. Gallbladder and Biliary Tree: Gallbladder surgically removed. Spleen: Unremarkable Pancreas: The pancreas is grossly normal in appearance. Adrenal Glands: Unremarkable Kidneys: Punctate calculus lower pole right kidney nonobstructing 5 mm calculus of the left ureteropelvic junction. Mild left hydronephrosis. Multiple punctate calculi lower pole left kidney. Bladder: There is calculus within the bladder on the left consistent with a recently passed ureteral calculus measuring 5-6 mm. Additionally there are 2 calculi at the left ureterovesical junction 1 measures 3-4 mm the 2nd measures 4 mm. Bowel: The stomach is grossly normal in appearance. Small bowel and colon are normal in caliber and distribution. The appendix is not visualized; however, no secondary findings of acute appendicitis identified. Ascites: Absent Lymphadenopathy: No mesenteric, retroperitoneal or periportal lymphadenopathy. Abdominal Wall and Mesentery: Unremarkable. Vasculature: The visualized abdominal aorta is normal in size and caliber. Evaluation of abdominal and pelvic vessels is limited due to lack of intravenous contrast. Pelvic Organs: Unremarkable Musculoskeletal: No aggressive focal bony lesions, acute fractures or dislocation. Soft tissues: Unremarkable IMPRESSION: 1. Punctate calculus nonobstructing lower pole right kidney 2. 5 mm calculus on the left at the ureteropelvic junction with mild left hydronephrosis 3. There is a 5-6 mm calculus within the bladder on the left is consistent with a recently passed left ureteral calculus. 4. There are 2 additional calculi at the left ureteral vesicle junction 1 measur es 3-4 mm 2nd measures 4 mm. Radiation optimization: All CT scans at this facility use at least one of these dose optimization techniques: automated exposure control mA and/or kV adjustment per patient size (includes targeted exams where dose is matched to clinical indication) or iterative reconstruction. ATED BY: RITESH ANDUJAR Jr., DO DICTATED DATE/TIME: 05/11/251920 SIGNED BY: RITESH ANDUJAR Jr., SIGNED DATE/TIME: 05/11/251920 CC: Labs Test 05/13/25 04:40 05/11/25 18:10 Range/Units White Blood Count 14.1 H 4.4-10.8 10^3/uL Red Blood Count 4.11 4.0-5.20 10^6/uL Hemoglobin 9.9 L 12.2-16.2 g/dL Hematocrit 30.9 L 36.0-46.0 % Mean Corpuscular Volume 75.2 L 80.0-100.0 fL Mean Corpuscular Hemoglobin 24.1 L 28.0-32.0 pg Mean Corpuscular Hemoglobin Concent 32.0 32.0-36.0 g/dL Red Cell Distribution Width 17.2 H 11.8-14.3 % Platelet Count 261 140-450 10^3/uL Mean Platelet Volume 8.3 6.9-10.8 fL Neutrophils (%) (Auto) 83.2 H 37.0-80.0 % Lymphocytes (%) (Auto) 9.3 L 10.0-50.0 % Monocytes (%) (Auto) 7.2 0.0-12.0 % Eosinophils (%) (Auto) 0.2 0.0-7.0 % Basophils (%) (Auto) 0.1 0.0-2.0 % Neutrophils # (Auto) 11.7 H 1.6-8.6 10 ^3/uL Lymphocytes # (Auto) 1.3 0.4-5.4 10 ^3/uL Monocytes # (Auto) 1.0 0-1.3 10 ^3/uL Eosinophils # (Auto) 0 0-0.8 10 ^3/uL Basophils # (Auto) 0 0-0.2 10 ^3/uL Nucleated Red Blood Cells 0.1 % Sodium Level 138 136-145 mmol/L Potassium Level 3.4 L 3.5-5.1 mmol/L Chloride Level 105 98-107 mmol/L Carbon Dioxide Level 23 20-31 mmol/L Anion Gap 10 5-15 Blood Urea Nitrogen 10 9-23 mg/dL Creatinine 1.40 H 0.550-1.02 mg/dL Glomerular Filtration Rate Calc 49 >90 mL/min BUN/Creatinine Ratio 7.1 L 10.0-20.0 Serum Glucose 100 74-106 mg/dL Calcium Level 8.0 L 8.7-10.4 mg/dL Total Bilirubin 0.7 0.2-1.0 mg/dL Aspartate Amino Transferase (AST) 16 13-40 U/L Alanine Aminotransferase (ALT) 11 7-40 U/L Alkaline Phosphatase 105 46-116 U/L Total Protein 6.6 5.7-8.2 g/dL Albumin 3.5 3.2-4.8 g/dL Urine Color Colorless Yellow Urine Clarity Turbid H Clear Urine pH 6.5 5.0-9.0 Urine Specific [place] 1.015 1.001-1.035 Urine Protein Negative Negative Urine Ketones Negative Negative Urine Blood Trace H Negative /uL Urine Nitrite Negative Negative Urine Bilirubin Negative Negative Urine Urobilinogen Normal Negative mg/dL Urine Leukocyte Esterase 3+ Negative /uL Urine RBC 6 0 - 4 /hpf Urine Microscopic WBC 64 H 0-5 /HPF Urine Squamous Epithelial Cells Mod <5 /hpf Urine Bacteria Few H None Seen /hpf Urine Glucose Normal Normal mg/dL Microbiology Date/Time Source Procedure Growth Status 05/11/25 18:10 Voided Urine Urine Culture - Preliminary Resulted Assessment/Plan Problem List: (1) Urinary tract infection (2) Cholecystitis (3) Ureterolithiasis (4) Flank pain Plan expulsive measures abx per primary lawrence catheter for drainage outpt lithotripsy TBA if fails trial of passage Plan discussed with: Patient, Other PHILIP GIRALDO NP May 13, 2025 12:02
[2025-05-13] MEDS: KETOROLAC TROMETH 30 MG/ML 1ML VIAL IV PRN (13:34)
[2025-05-13] MEDS: PIPERACILLIN-TAZOB 3.375GM 100 ML IV SCH (13:34)
[2025-05-14] VITALS (8 sets, daily range): BP systolic 103–128; BP diastolic 71–83; PULSE 83–97; RESP 16–19; TEMP 97.9–98.5; O2SAT 95–97
[2025-05-14 05:05] LABS: Chloride 105 mmol/L (98-107); Hematocrit 31.5 % (36.0-46.0); Hemoglobin 10.3 g/dL (12.2-16.2); Mean Corpuscular Hemoglobin 24.5 pg (28.0-32.0); Mean Corpuscular Volume 74.9 fL (80.0-100.0); Nucleated Red Blood Cells % 0.0 %; Sodium 140 mmol/L (136-145)
[2025-05-14 05:06] LABS: Anion Gap 10 (5-15); Carbon Dioxide 25 mmol/L (20-31)
[2025-05-14 05:08] LABS: Calcium 8.5 mg/dL (8.7-10.4); Potassium 3.3 mmol/L (3.5-5.1)
[2025-05-14 05:11] LABS: BUN/Creatinine Ratio 7.1 (10.0-20.0); Blood Urea Nitrogen 9 mg/dL (9-23)
[2025-05-14 05:45] LABS: Glucose 112 mg/dL (74-106)
[2025-05-14] MEDS: METOCLOPRAMIDE HCL 5MG/ml INJ 2ml VIAL IV PRN (11:54)
--- NOTE | 2025-05-14 14:15 | DVHPN2 ---
Subjective Improvement but is very slow, seen bedside today. Reviewed: H&P Changes from previous H/P or p: No Changes General: Per HPI Objective Vitals Vital Signs Date Time Temp Pulse Resp B/P (MAP) Pulse Ox O2 Delivery O2 Flow Rate FiO2 05/14/25 12:42 98.5 83 16 105/71 (82) 96 98.5 05/14/25 08:00 Room Air* 0 21 Intake/Output Intake and Output 05/14/25 07:00 Intake Total 1770 ml Balance 1770 ml Intake Oral 1420 ml IV Total 350 ml # Voids 6 Exam Gen: 39-year-old female in mild distress Skin: Warm, dry, normal color and texture, no rash. HEENT: Normocephalic atraumatic, mucous membranes moist and pink. Neck: Cervical and supraclavicular nodes normal without enlargement, trachea is midline, thyroid gland is normal without masses. Pulmonary: Clear to auscultation and percussion bilaterally. Cardiac: Regular rate and rhythm. No murmur Abdomen: Soft, left CVA tenderness, nondistended, bowel sounds present all 4 quadrants, no guarding, no rigidity, no organomegaly. Extremities: No cyanosis, clubbing, no edema Neuro: Cranial nerves II through XII grossly intact, normal affect and speech, no focal motor deficits. Medications Current Medications Medications Dose Ordered Sig/Gregg Route Start Time Stop Time Status Last Admin Dose Admin Amlodipine Besylate 10 mg DAILY PO 05/12/25 10:00 05/14/25 10:08 10 MG Amlodipine Besylate 10 mg DAILY PO 05/12/25 10:00 UNV Acetaminophen/ Hydrocodone Bitart 1 tab Q4HP PRN PO 05/11/25 20:45 05/12/25 10:01 1 TAB Temazepam 15 mg QHSP PRN PO 05/11/25 22:00 Acetaminophen 650 mg Q6HP PRN PO 05/11/25 20:45 05/14/25 10:27 650 MG Morphine Sulfate 2 mg Q6HPRN PRN IV 05/11/25 20:45 Ketorolac Tromethamine 15 mg Q6HPRN PRN IV 05/12/25 17:30 05/17/25 17:30 05/13/25 21:04 15 MG Sodium Chloride 1,000 ml @ 75 mls/hr [id number] IV 05/12/25 17:30 05/14/25 09:38 75 MLS/HR Piperacillin Sod/ Tazobactam Sod 100 ml @ 25 mls/hr Q8HR IV 05/13/25 14:00 05/14/25 14:10 25 MLS/HR Metoclopramide HCl 10 mg TID PRN IV 05/14/25 08:30 05/14/25 11:54 10 MG Laboratory Results Laboratory Tests 05/14/25 04:22 Chemistry Test 05/14/25 04:22 Calcium Level 8.5 mg/dL (8.7-10.4) L Urinalysis Test 05/11/25 18:10 Urine Color Colorless (Yellow) Urine Clarity Turbid (Clear) H Urine pH 6.5 (5.0-9.0) Urine Specific [place] 1.015 (1.001-1.035) Urine Protein Negative (Negative) Urine Ketones Negative (Negative) Urine Blood Trace /uL (Negative) H Urine Nitrite Negative (Negative) Urine Bilirubin Negative (Negative) Urine Urobilinogen Normal mg/dL (Negative) Urine Leukocyte Esterase 3+ /uL (Negative) Urine RBC 6 /hpf (0 - 4) Urine Microscopic WBC 64 /HPF (0-5) H Urine Squamous Epithelial Cells Mod /hpf (<5) Urine Bacteria Few /hpf (None Seen) H Urine Glucose Normal mg/dL (Normal) Microbiology Microbiology Date/Time Source Procedure Growth Status 05/11/25 18:10 Voided Urine Urine Culture - Final Complete Labs and/or images reviewed: Labs reviewed by me, Image(s) reviewed by me Assessment/Plan Assessment/Plan 39-year-old female presents for evaluation of flank pain. Patient endorses a 10 day history of left-sided flank pain with associated nausea and she also started developing fever over the past couple of days. No dysuria or hematuria. No other acute complaints. 05/12: Flank pain, nausea continuing febrile episodes. Continuing IV antibiotics. Reassess hydronephrosis we will ultrasound kidney. 05/13: Still having fevers pain CVA tenderness, we will repeat ultrasound to reassess hydronephrosis, consult Urology, increase antibiotic to Zosyn. Ceftriaxone continuing IV fluids continue prn antiemetics and analgesia. We will get blood cultures today she is still having fevers. - urology recommending outpatient lithotripsy but ultrasounds showing ongoing left hydronephrosis concern for infected stone. 05/14: improved fevers, yest kidney u/s still with hydronephrosis. patient vomit yest evening. today remains nauseas. will continue ivf, iv abx, antiemetics, repeat u/s saturday. do not discharge over weekend, unless significant improvement (defer to covering providers assessment), needs abx, if continues improving (+decresase hydronephrosis), then plan ctx on saturday and possible dc po abx. Diagnosis Pyelonephritis, complicated conditions below Nephrolithiasis , obstructive Left hydronephrosis febrile episodes tachycardia P.o. intolerance due to above Intractable pain due to above Intractable nausea and vomiting due to above Acute kidney injury Leukocytosis with neutrophilia Hypokalemia UTI Hypertension - amlodipine 10 Ceftriaxone 1 g daily Pain control PRN Antiemetics prn IV fluids Med surge Full code Plan discussed with: Patient My Orders Orders - JENARO ELIZABETH MD Procedure Category Date Status Time Blood Culture LAURIE 05/13/25 In Process 16:30 Molded Frames [employer]sembler ORDERS 05/14/25 Transmitted 08:20 Metoclopramide PHA 05/14/25 In Process Injection (Reglan 08:30 Kidney US 05/16/25 Transmitted 08:00 Complete Blood Count LAB 05/15/25 Verified 04:00 Date of Service: May 14, 2025 Billing Provider: JENARO ELIZABETH MD Common Visit Codes: [id number] INP/OBS CARE(HIGH) JENARO ELIZABETH MD May 14, 2025 14:15
[2025-05-15 05:00] VITALS: BP 115/80; PULSE 68; RESP 16; TEMP 98.1; O2SAT 98
[2025-05-15 06:04] LABS: Hemoglobin 9.9 g/dL (12.2-16.2)
[2025-05-15 06:08] LABS: Hematocrit 30.0 % (36.0-46.0); Mean Corpuscular Hemoglobin 24.4 pg (28.0-32.0); Mean Corpuscular Volume 73.8 fL (80.0-100.0); Nucleated Red Blood Cells % 0.1 %
[2025-05-15 08:00] VITALS: PULSE 83; PULSE 94; RESP 16; O2SAT 96
[2025-05-15 09:25] VITALS: BP 118/83; PULSE 94; RESP 16; TEMP 99.4; O2SAT 96
[2025-05-15 13:17] VITALS: BP 126/85; PULSE 94; RESP 16; TEMP 98.8; O2SAT 97
[2025-05-15] MEDS ORDERED: CIPR500T4 PO (14:51)
[2025-05-15] MEDS ORDERED: TAMS-35 PO ×2 (14:54)
[2025-05-15] MEDS ORDERED: FLUC100T34 PO (14:55)
[2025-05-15 16:52] VITALS: BP 126/83; PULSE 94; RESP 16; TEMP 37.1; O2SAT 97
[2025-05-15 17:26] VITALS: BP 122/86; PULSE 86; RESP 16; TEMP 98.4; O2SAT 98
== END 2025-05-15 17:55 | disposition home or self-care (01) | DRG 690 ==
LOC: EEVIPCON 17:40 → ER 17:40 → OVERFLOW 20:06 → WEST WING 22:52 → TELE-WESTW 05-14 08:16
PROVIDERS: ADMIT Student in an Organized Health Care Education/Training Program; ATTEND Student in an Organized Health Care Education/Training Program
DX: N13.6 Pyonephrosis (principal); N17.9 Acute kidney failure, unspecified; I10 Essential (primary) hypertension; E87.6 Hypokalemia; D72.0 Genetic anomalies of leukocytes; F41.9 Anxiety disorder, unspecified; Z79.899 Other long term (current) drug therapy; Z83.3 Family history of diabetes mellitus; Z87.442 Personal history of urinary calculi; Z80.9 Family history of malignant neoplasm, unspecified; Z82.49 Family history of ischemic heart disease and other diseases of the circulatory system; Z90.49 Acquired absence of other specified parts of digestive tract; Z98.51 Tubal ligation status
CPT/HCPCS: 36415; 74176; 76775; 80048; 80053; 81001; 85025; 87040; 87086; 96361; 96365; 96375; G0378; J1885; J2405; J2543